=== PATIENT | female | born 1950 | race African-American/Black ===

== ENCOUNTER 2018-10-24 12:44 | Emergency (ER) | payer SELFPAY ==
[~2018-10-24] VITALS: Ht 170.2 cm; Wt 90.7 kg
--- NOTE | 2018-10-24 13:00 | NUR ---
ED Nurse Note: Patient brought in by ambulance from the street with [employer] and [employer]. patient denies any SI/HI. patient reports that she does not need to see a doctor "I am ok" Patient refused for the vital signs.
--- NOTE | 2018-10-24 13:24 | NUR ---
ED Nurse Note: patient refused to take zyprexa, RN went into the room with CN. patient refused lab draw and urine test.
--- NOTE | 2018-10-24 13:49 | Emergency Room Report ---
History of Present Illness General Chief Complaint: Behavioral Complaint Source: EMS (Urmila Munroe) Present Illness HPI Pt. presents to the ED brought by ambulance and accompanied by PD but not in custody. She is c/o being brought here against her will. Denies SI/HI, Pt. with hx of schizophrenia. Pt. does seem to have some intermittent paranoid comments saying the EMS personnel are being paid by "rich white men to try and rape her" and are harassing her. Pt. is refusing to give any of her information. Denies PmHx. She denies Physical Exam or medical interventions. Pt. is requesting to have her belongings returned to her and she wants to leave. PT. denies being homeless. Denies pain, CP or SOB. HPI and ROS are very limited due to poor pt. cooperation. (Urmila Munroe) Allergies: Coded Allergies: UNABLE TO ASSESS (Unverified , 10/24/18) Patient History Past Medical History: see triage record, psych hx Past Surgical History: unable to obtain Pertinent Family History: unable to obtain Reviewed Nursing Documentation: PMH: Agreed; PSxH: Agreed (Urmila Munroe) Review of Systems All Other Systems: limited - limited due to poor pt. cooperation. (Urmila Munroe) Physical Exam Vital Signs Date Time Temp Pulse Resp B/P (MAP) Pulse Ox O2 Delivery O2 Flow Rate FiO2 10/24/18 13:40 18 Sp02 EP Interpretation: reviewed, normal General Appearance: no apparent distress, alert, GCS 15, non-toxic Head: normocephalic, atraumatic Eyes: bilateral eye normal inspection, bilateral eye PERRL ENT: hearing grossly normal, normal voice Neck: full range of motion Respiratory: speaking full sentences Cardiovascular #1: regular rate, rhythm Musculoskeletal: gait/station normal, normal range of motion, non-tender Neurologic: alert, oriented x3, responsive, motor strength/tone normal, normal gait, speech normal, grossly normal Psychiatric: judgement/insight normal, memory normal, anxious, other - no severely agitated or in distress, follows verbal directions. Lymphatic: no adenopathy (Urmila Munroe) Medical Decision Making PA Attestation Dr. Jaramillo is my supervising Physician whom patient management has been discussed with. (Urmila Munroe) Medicare Attestation The history of Linda Gaona has been reviewed and management options for her have been examined and discussed by Rudolph Jaramillo. I have personally examined and interviewed the patient. (Rudolph Jaramillo MD) Diagnostic Impression: Primary Impression: Behavioral disorder ER Course Pt. presents to the ED brought by ambulance and accompanied by PD but not in custody. She is c/o being brought here against her will. Denies SI/HI, Pt. with hx of schizophrenia. Pt. does seem to have some intermittent paranoid comments saying the EMS personnel are being paid by "rich white men to try and rape her" and are harassing her. Pt. is refusing to give any of her information. Denies PmHx. She denies Physical Exam or medical interventions. Pt. is requesting to have her belongings returned to her and she wants to leave. PT. denies being homeless. Denies pain, CP or SOB. HPI and ROS are very limited due to poor pt. cooperation. Pt is hyperactive, and has a very anxious and restless affect. Ddx considered but are not limited to OD, SI/HI, psychosis, UTI, intoxication Vital signs: are WNL, pt. is afebrile H&PE are most consistent with behavioral/mental health issue ORDERS: -CBC, CMP--Pt. declined blood work -UA: pt. declined to give urine -UDS: Pt. declined to give urine -Salicylates and Acetaminophen - Pt. declined to give blood work. !!! Pt. is refusing all aspects of care, denies triage vitals, meds, or exam. Pt. A & O x 3 . ED INTERVENTIONS: - Zyprexa 5mg PO ordered, but pt. refusing. DISPOSITION: Pt. NAD, non-toxic in appearance A & O x 3 not posing a threat to herself or others. Pt. not on 5150 hold and is not in custody therefore pt. will be d/c per her request with out further medical evaluation or medical management. Pt. highly encouraged to stay and accept some medications to help calm her down, but she continues to refuse. I have no legal right at the present time to hold this patient against her will nor forcer her to accept medical interventions. Offered to arrange transportation for the pt. She declines and says her cousin is on her way to come pick her up. (Urmila Munroe) Last Vital Signs Date Time Temp Pulse Resp B/P (MAP) Pulse Ox O2 Delivery O2 Flow Rate FiO2 10/24/18 13:40 18 (Urmila Munroe) Disposition: HOME, SELF-CARE Condition: Stable Referrals: NOT CHOSEN IPA/,REFERRING (PCP) [facility] Patient Instructions: Schizophrenia Additional Instructions: Take medications as directed. Follow up with a Mental Health Specialist/ Psychiatrist in 3 days, even if your symptoms have resolved. --Please review [facility] resource information provided Return sooner to ED if new symptoms occur, or current symptoms become worse. - Please note that this Emergency Department Report was dictated using [employer] checker technology software, occasionally this can lead to erroneous entry secondary to interpretation by the dictation equipment. Urmila Munroe Oct 24, 2018 13:49 Rudolph Jaramillo MD Oct 25, 2018 13:55
--- NOTE | 2018-10-24 14:28 | NUR ---
ER DISCHARGE NOTE: Patient is cleared to be discharged per MK RIVERA , pt is aox4, on room air, unable to take vital signs as patient refused to take vital signs. patient refused assessment. pt was given dc instructions, patient reports "I am fine, I'm not even supposed to be here." patient refused to sign the discharge paper. CN made aware. pt is able to ambulate with steady gait. pt took all belongings including her cart.
== END 2018-10-24 14:28 | disposition home or self-care (01) ==
LOC: EDBD 12:44 → EMR 12:55 → EDBD 12:55 → EMR 14:28
DX: F91.9 Conduct disorder, unspecified (principal)
CPT/HCPCS: 99281